=== PATIENT | female | born 1955 | race Caucasian/White ===

== ENCOUNTER 2022-09-01 11:22 | Inpatient (IN) ==
--- NOTE | 2022-08-12 08:46 | PAT Medication Instructions ---
Medication Instructions Date of Service August 12, 2022 Home Medications calcium carbonate 500 mg calcium (1,250 mg) chewable tablet (Calcium 500) 500 mg PO DAILY cyanocobalamin (vitamin B-12) 1,000 mcg/mL injection solution 1,000 mcg subcut MONTHLY folic acid 1 mg tablet 1 mg PO QAM lansoprazole 30 mg capsule,delayed release 30 mg PO BID lisinopril 10 mg tablet 10 mg PO QAM oxazepam 10 mg capsule 10 mg PO BID PRN paroxetine HCl 20 mg tablet 40 mg PO PM simvastatin 40 mg tablet 40 mg PO HS spironolactone 25 mg tablet 25 mg PO BID sulfasalazine 500 mg tablet 1,500 mg PO TID Continue as directed not day of surgery calcium carbonate 500 mg calcium (1,250 mg) chewable tablet (Calcium 500) 500 mg PO DAILY cyanocobalamin (vitamin B-12) 1,000 mcg/mL injection solution 1,000 mcg subcut MONTHLY DO NOT take the morning of surgery folic acid 1 mg tablet 1 mg PO QAM lisinopril 10 mg tablet 10 mg PO QAM spironolactone 25 mg tablet 25 mg PO BID sulfasalazine 500 mg tablet 1,500 mg PO TID Take morning of surgery With a small sip of water, OTHERWISE NOTHING TO EAT OR DRINK AFTER MIDNIGHT: lansoprazole 30 mg capsule,delayed release 30 mg PO BID oxazepam 10 mg capsule 10 mg PO BID PRN(if needed) Take evening before surgery lansoprazole 30 mg capsule,delayed release 30 mg PO BID oxazepam 10 mg capsule 10 mg PO BID PRN(if needed) paroxetine HCl 20 mg tablet 40 mg PO PM simvastatin 40 mg tablet 40 mg PO HS spironolactone 25 mg tablet 25 mg PO BID sulfasalazine 500 mg tablet 1,500 mg PO TID Other Notes If you have any questions please call us at [phone] or [phone] or [phone] or [phone]
--- NOTE | 2022-08-18 14:18 | Anesthesiology Consultation ---
Date of Service August 18, 2022 Assessment & Plan (1) Encounter for pre-operative examination: - mild end expiratory wheezes noted on exam: optimization form sent to PCP. Chart Review Chart Review: Pending: Refer to Additional Notes / Consult section and Patient seen in Pre Admission Testing Teaching & Discussion Pre-Anesthesia Teaching/Discussion Notes: Instructed NPO after midnight before surgery, except medications with 15 cc of water. Medication instructions provided according to the PAT guidelines. History Surgery Operation Date: 09/01/22 12:25 Proposed Procedures p L2-S1 Decompression and Fusion Spinal Cord Monitoring - Dima Rose DO Height/Weight Height: 5 ft 3 in Weight: 88.451 kg Allergies Allergy/AdvReac Type Severity Reaction Status Date / Time celecoxib [From Celebrex] Allergy Intermediate feet swell Verified 08/08/22 14:02 Medications Home Medications Medication Instructions Recorded Confirmed Last Taken calcium carbonate 500 mg calcium 500 mg PO DAILY 08/08/22 08/08/22 Unknown (1,250 mg) chewable tablet (Calcium 500) cyanocobalamin (vitamin B-12) 1,000 mcg subcut MONTHLY 08/08/22 08/08/22 Unknown 1,000 mcg/mL injection solution folic acid 1 mg tablet 1 mg PO QAM 08/08/22 08/08/22 Unknown lansoprazole 30 mg capsule,delayed 30 mg PO BID 08/08/22 08/08/22 Unknown release lisinopril 10 mg tablet 10 mg PO QAM 08/08/22 08/08/22 Unknown oxazepam 10 mg capsule 10 mg PO BID PRN Anxiety 08/08/22 08/08/22 Unknown paroxetine HCl 20 mg tablet 40 mg PO PM 08/08/22 08/08/22 Unknown simvastatin 40 mg tablet 40 mg PO HS 08/08/22 08/08/22 Unknown spironolactone 25 mg tablet 25 mg PO BID 08/08/22 08/08/22 Unknown sulfasalazine 500 mg tablet 1,500 mg PO TID 08/08/22 08/08/22 Unknown Additional Notes: Pt verbalized understanding and it was marked on provided medication instructions to not take calcium DOS. She denied questions or concerns. Past Medical History Medical History (Updated 08/18/22 @ 15:02 by Clarita Vasquez PA-C) Anxiety Chronic back pain Crohn's disease Diverticular disease GERD (gastroesophageal reflux disease) controlled, stable per pt Hiatal hernia slight History of anesthesia reaction "doesn't take much to put me out" denies being slow to wake or h/o re- intubation Hyperlipidemia Hypertension controlled, stable per pt Skin cancer left arm s/p excision Sleep apnea has not received new cpap due to recall Patient denies h/o stroke, seizures, heart attack, heart failure, DM, blood clots or blood transfusions. Exercise / Class Metabolic Activity II 4-5 Yardwork/Stairs/Walk up hill (denies CP or SOB with 1 FOS) Past Family History Family History Father No problems noted. Grandfather (Paternal) Colon cancer Past Surgical History Surgical History (Updated 08/18/22 @ 14:54 by Clarita Vasquez PA-C) History of bilateral tubal ligation History of cataract surgery bilat History of colonoscopy History of esophagogastroduodenoscopy (EGD) History of hysterectomy History of surgery on arm left from fall History of tonsillectomy History of tooth extraction Past Anesthesia History Other ("doesn't take much to put out" denies being slow to wake/re-intubation) History of PONV History of PONV and Hx of Motion Sickness Social History Smoking Status: Current every day smoker tobacco type: cigarettes Smoking cigarettes per day: 1/2 ppd-advised Do You Dip or Chew Tobacco: No Hx Alcohol Use: No Hx Substance Use: No substance use type: does not use Review of Systems Patient denies chest pain, shortness of breath, dyspnea on exertion, fever, chills, cough, wheezing, or palpitations. Physical Exam Vital Signs Vitals BP 116/76 P 80 TEMP 99 SP02 94% on RA RESP 17 Physical Full cervical extension range of motion without pain TMD 3.5 finger breadths Mallampati Score 3 Dentition: intact, several bridges two upper and one lower; denies chipped or loose teeth, caps/crowns Lungs: normal respiratory effort. Normal respiratory effort, good air movement. Mild end expiratory wheezes, no rales or rhonchi Cardiac: regular rate and rhythm, no murmurs noted Carotid arteries: negative bruit bilat Lab Results Anesthesia Preop Results Results Anesthesia Widget: WBC 8.51 K/ul (4.8-10.8) 08/18/22 Hgb 16.7 g/dl (12.0-16.0) H 08/18/22 Hct 48.4 % (34.1-44.9) H 08/18/22 Plt 210 K/uL (130-400) 08/18/22 PT 11.9 Seconds (9.0-12.0) 08/18/22 PTT 34.2 Seconds (21.0-31.0) H 08/18/22 INR 1.1 (0.9-1.1) 08/18/22 Urine Color Yellow 08/18/22 Urine Appearance Clear (Clear) 08/18/22 Urine pH 7.0 (4.5-7.5) 08/18/22 Urine Specific Gibbs 1.005 (1.000-1.030) 08/18/22 Urine Protein Negative (Negative) 08/18/22 Urine Glucose (UA) Negative (Negative) 08/18/22 Urine Ketones Negative (Negative) 08/18/22 Urine Blood Negative (Negative) 08/18/22 Urine Nitrite Negative (Negative) 08/18/22 Urine Bilirubin Negative (Negative) 08/18/22 Urine Urobilinogen Negative (Negative) 08/18/22 Urine Leukocyte Esterase Negative (Negative) 08/18/22 Blood Type A Positive 08/18/22 Antibody Screen NEGATIVE 08/18/22 Testing Laboratory Results 08/07/2022 SODIUM: 137 POTASSIUM: 4 CHLORIDE: 103 CO2: 28 BUN: 6 CREATININE: 0.7 GLUCOSE: 91 Electrocardiogram Date: 08/18/22 Sinus rhythm with 1st degree AV block, rate 81 bpm Chest X-Ray Date: 08/18/22 Small right midlung zone and left lung base linear densities likely representing subsegmental atelectasis or scarring. Otherwise, the lungs are clear. No evidence for pulmonary edema. The cardiac silhouette is top normal in size. No pleural effusions. No pneumothorax. Old, healed left-sided rib fractures are noted. IMPRESSION: No acute process. COVID-19 Risk Screen Screening Information COVID-19 Screen Date: 08/18/22 Exposure 21 Days Family/Household +COVID Last 21 Days: No Exposure 10 Days Any COVID Exposure Last 10 Days: No Symptoms Last 10 Days Experienced COVID Sx Last 10 Days: No + COVID 0-90 Days COVID + in Last 0-90 Days: No
[~2022-09-01 11:22] MED LIST: ACETAMINOPHEN 500 MG TAB PO SCH; GABAPENTIN 300 MG CAP PO SCH; LR 15ML/HR IV SCH; ceFAZolin 2000MG 2,000 MG/15 ML SYR IV SCH
[2022-09-01] MEDS ORDERED: fentaNYL citrate 100 MCG/2 ML VIAL ONE ×2 (11:29)
[2022-09-01] MEDS ORDERED: MIDAZOLAM HCL 1 MG/ML 2ML VIAL ONE (11:29)
[2022-09-01] MEDS ORDERED: PHENYLEPHRINE HCL 10 MG/ML VIAL ONE (11:37)
[2022-09-01] MEDS ORDERED: ePHEDrine sulfate 50 MG/ML AMP IV PRN (12:38)
[2022-09-01] MEDS ORDERED: fentaNYL citrate 100 MCG/2 ML VIAL IV PRN (12:38)
[2022-09-01] MEDS ORDERED: ATROPINE SULFATE 0.1 MG/ML 10ML SYR IV PRN (12:38)
[2022-09-01] MEDS ORDERED: ONDANSETRON INJ 2 MG/ML 2 ML VIAL IV PRN ×2 (12:38→19:18)
--- NOTE | 2022-09-01 12:47 | History & Physical Bridge Note ---
Date of Service September 01, 2022 History & Physical Bridge Note I have examined the patient, reviewed the History & Physical and in the interval since the performance of the History & Physical I have noted the following changes of clinical significance: no changes noted
--- NOTE | 2022-09-01 12:48 | History & Physical Report ---
Date of Service September 01, 2022 Assessment & Plan (1) Neurogenic claudication due to lumbar spinal stenosis: Plan: L2-S1 decompression and fusion History of Present Illness Chief Complaint: Back and bilateral leg pain Primary Care Provider: Rolando Poe This is a 67-year-old female who presents with persistent back and bilateral leg pain. After failing a course of nonoperative care patient patient is here for surgical invention. Allergies Allergy/AdvReac Type Severity Reaction Status Date / Time celecoxib [From Celebrex] Allergy Intermediate feet swell Verified 09/01/22 11:48 Home Medications Medication Instructions Recorded Confirmed Type calcium carbonate 500 mg calcium 500 mg PO DAILY 08/08/22 09/01/22 History (1,250 mg) chewable tablet (Calcium 500) cyanocobalamin (vitamin B-12) 1,000 mcg subcut MONTHLY 08/08/22 09/01/22 History 1,000 mcg/mL injection solution folic acid 1 mg tablet 1 mg PO QAM 08/08/22 09/01/22 History lansoprazole 30 mg capsule,delayed 30 mg PO BID 08/08/22 09/01/22 History release lisinopril 10 mg tablet 10 mg PO QAM 08/08/22 09/01/22 History oxazepam 10 mg capsule 10 mg PO BID PRN Anxiety 08/08/22 09/01/22 History paroxetine HCl 20 mg tablet 40 mg PO PM 08/08/22 09/01/22 History simvastatin 40 mg tablet 40 mg PO HS 08/08/22 09/01/22 History spironolactone 25 mg tablet 25 mg PO BID 08/08/22 09/01/22 History sulfasalazine 500 mg tablet 1,500 mg PO TID 08/08/22 09/01/22 History Past Med/Surg History Medical History (Updated 09/01/22 @ 12:48 by Dima Rose DO) Anxiety Chronic back pain Crohn's disease Diverticular disease GERD (gastroesophageal reflux disease) controlled, stable per pt Hiatal hernia slight History of anesthesia reaction "doesn't take much to put me out" denies being slow to wake or h/o re- intubation Hyperlipidemia Hypertension controlled, stable per pt Skin cancer left arm s/p excision Sleep apnea has not received new cpap due to recall Surgical History History of bilateral tubal ligation History of cataract surgery bilat History of colonoscopy History of esophagogastroduodenoscopy (EGD) History of hysterectomy History of surgery on arm left from fall History of tonsillectomy History of tooth extraction Family History Father No problems noted. Grandfather (Paternal) Colon cancer Social History Smoking Status: Current every day smoker Cigarettes Per Day: 1/2 ppd-advised; Second Hand Exposure: No; Do You Dip or Chew Tobacco: No; Tobacco Cessation Education Requested by Patient: No Hx Alcohol Use: No Hx Substance Use: No Preferred Language: Sami Communication Ability: Effective Access Director Required: No Beliefs That Will Affect Care: None Current Living Situation: Spouse Other Information That Helps Us Care for You: No Feels Safe at Home: Yes Safety Concerns: Feels Safe At This Time Assistive Devices: Glasses Physical Exam Physical Exam: Patient is alert and oriented Heart regular rhythm Lungs clear Results & Data Results & Data ([facility]) Vital Signs (Past 12 Hours) Vital Signs Temp Pulse Resp BP Pulse Ox O2 Del Method 09/01/22 11:52 36.8 C 75 18 143/94 H 97 Room Air
[2022-09-01] MEDS ORDERED: ceFAZolin 330 MG/ML 1 GM VIAL ONE (12:50)
[2022-09-01] MEDS ORDERED: BUPIVACAINE/EPINEPHRINE 0.25% 1:200,000 30 ML VIAL ONE (12:50)
[2022-09-01] MEDS ORDERED: HYDROmorphone INJ 2 MG/ML SYR/VIAL ONE (13:46)
[2022-09-01] MEDS ORDERED: DEXAMETHASONE SOD INJ 4 MG/ML VIAL ONE (13:48)
[2022-09-01] MEDS ORDERED: NEOSTIGMINE METHYLSULFATE 1 MG/ML 10ML VIAL ONE (13:48)
[2022-09-01] MEDS ORDERED: LARYING-O-JET KIT (LTA) ONE (13:48)
[2022-09-01] MEDS ORDERED: ROCURONIUM BROMIDE 10 MG/ML 5 ML VIAL IV ONE (13:48)
[2022-09-01] MEDS ORDERED: PROPOFOL IV EMULSION 10 MG/ML 20 ML VIAL IV ONE (13:48)
[2022-09-01] MEDS ORDERED: GLYCOPYRROLATE 0.2 MG/ML VIAL ONE (13:48)
[2022-09-01] MEDS ORDERED: ONDANSETRON INJ 2 MG/ML 2 ML VIAL ONE (13:48)
[2022-09-01] MEDS ORDERED: LIDOCAINE 2% MPF LOCAL 5 ML VIAL INFIL ONE (13:48)
[2022-09-01] MEDS ORDERED: ePHEDrine sulfate 50 MG/ML SYR ONE (13:48)
[2022-09-01] MEDS ORDERED: FLOSEAL HEMOSTATIC MATRIX 10ML TOP ONE (13:52)
--- NOTE | 2022-09-01 16:00 | Operative Report ---
Post Operative Report Pre & Post Diagnosis Operation Date: 09/01/22 12:25 Pre-Op Diagnosis: Lumbar spinal stenosis with radiculopathy Post-Op Diagnosis: Same I identified the patient and participated in the time-out.: Yes Procedure Operation Date: 09/01/22 12:25 Actual Procedures #1 revision decompression with bilateral medial facetectomies and foraminotomies L2-L3 L3-L4 L4-5. #2 posterior spinal fusion L2-L5 per #3 placement of posterior segmental instrumentation L2-L5. #4 interbody fusion L3-4 L4-L5. #5 placement of Spira 13 x 26 mm cage at L3-L4 and 14 x 26 mm cage at L4-5. #6 placement locally harvested morselized autograft in the posterior gutters. #7 placement of I factor interbody space and infuse collagen sponge bone mass graft in the posterior lateral gutters. Surgeon Dima Rose, DO Outplacement Consultant Tessy Torres Estimated Blood Loss 500 Findings See Below The patient is 5 foot 3 weighing over 89 kg with a BMI of 35. The patient body was did contribute to significant technical difficulty requiring her deepest retractors and longer instruments in order to perform her procedure. This at least 50% increased operative time. Specimens None Indications This is a 67-year-old female who presents above-mentioned diagnosis after failed course of nonoperative care is here for the above-mentioned procedure. Description of Procedure Patient was met with identified informed consent obtained. Patient was then taken to the operative suite underwent a patient placed in a prone position the Lovilia table top Trev frame. All bony prominences well-padded eyes inspected to ensure no external pressure placed upon the. This point the lumbar spine was prepped and draped in normal sterile fashion. Sharp dissection with the assistance of Bovie cautery was performed down to and exposing the remaining lamina transverse processes of L2-L3-L4 and L5 bilaterally. L5-S1 had marked bony overgrowth tremendous scarring marked difficulty identifying landmarks. Subsequently I focused on the severe areas of compression today. Into the l ength of the surgery chose to address the superior levels first. Subsequently revision decompression with bilateral medial facetectomies and foraminotomy was performed at L2-L3 L3-L4 L4-5. Pedicle screws were then placed at L2 L3-L4-L5 bilaterally with assistance of fluoroscopy in the process martín placed. By way of a transforaminal approach complete discectomy of L4-5 was performed on the left. The endplates curetted to subcortical bleeding bone and a 14 x 26 mm spiral cage with I factor tapped in position. I then proceeded to L3-L4 and again by way of a transfemoral approach and left complete discectomy performed endplates curetted to subcortical bleeding bone and a 13 x 26 mm spiral cage with I factor tapped in position. Rods were then locked in final position bilaterally. Transverse processes of L2-L3 L4-5 burred to subcortically bone. Infuse collagen sponge bone mass And locally harvested morselized autograft was placed in the posterior gutters. 15 round VANDA drain inserted. The incision was then closed with 1 Vicryl in the fascia 2-0 Vicryl subcutaneously and 4 Monocryl for final skin closure. Steri-Strip sterile dressings placed. Patient waken taken PACU stable condition. Please note spinal cord monitoring was utilized at the procedure no changes noted. Lastly Tessy Torres was present out the entire surgery and while the patient positioning complex portions of the surgery and final skin closure. I attest to the content of the Intraoperative Record and any orders documented therein. Any exceptions are noted below.
--- NOTE | 2022-09-01 16:10 | Fluoroscopy Report ---
INTRAOPERATIVE RADIOGRAPHS CLINICAL HISTORY: Lumbar spinal fusion. Fluoroscopy time: 54 seconds. FINDINGS: 2 spot fluoroscopic views of the lumbar spine are presented. There has been discectomy at L 4-L5 and L5-S1 with laminectomy and posterior fusion at L2-L5. Interpedicular screws are present at a ll levels. The orthopedic hardware appears intact. IMPRESSION: Intraoperative images from lumbar spinal fusion surgery as above. Electronically signed by: Tarun Wilder M.D. 09/01/2022 4:09 PM
[2022-09-01] MEDS ORDERED: ALBUT/IPRATROP 3MG/0.5MG NEB 3 ML VIAL ONE (16:38)
[2022-09-01] MEDS ORDERED: ALBUT/IPRATROP 3MG/0.5MG NEB 3 ML VIAL NEB STA (16:39)
--- NOTE | 2022-09-01 17:47 | Anesthesiology Progress Note ---
Date of Service September 01, 2022 Anesthesia Post Procedure Vital Signs Vital Signs: Temp Pulse Pulse Resp BP BP Pulse Ox 09/01/22 17:35 36.8 C 107 H 18 127/70 93 09/01/22 17:25 101 H 14 118/101 H 90 09/01/22 17:15 98 H 14 108/87 92 09/01/22 17:05 97 H 12 132/85 92 09/01/22 16:55 97 H 15 143/87 H 90 09/01/22 16:47 95 H 11 L 153/91 H 97 09/01/22 16:40 99 H 13 153/113 H 92 09/01/22 16:19 36.5 C 77 14 159/91 H 95 09/01/22 11:52 36.8 C 75 18 143/94 H 97 O2 Del Method O2 Flow Rate 09/01/22 17:35 Nasal Cannula 4 09/01/22 17:25 Nasal Cannula 4 09/01/22 17:15 Oxymask 5 09/01/22 17:05 Oxymask 5 09/01/22 16:55 Nebulizer 10 09/01/22 16:47 Nebulizer 10 09/01/22 16:40 Oxymask 10 09/01/22 16:19 Oxymask 10 09/01/22 11:52 Room Air Pain Intensity Back: Pain Intensity: 3 Transfer of Care Handoff Completed per policy Notes Mental Status: alert / awake / arousable Patient Amnestic to Procedure: Yes Nausea / Vomiting: adequately controlled Pain: adequately controlled Airway Patency, RR, SpO2: stable & adequate BP & HR: stable & adequate Hydration State: stable & adequate Anesthetic Complications: no major complications apparent Notes: patient to floor with nasal cannula and pulse ox monitor. respiratory status is acceptable and improving as would be expected for a patient with preexisting pulmonary disease and a several hour spine surgery. she did receive 1 duoneb treatment in pacu. possibly a bit wet but steadily improving. elected not to treat with diuretics to avoid intravascular dehydration.
[2022-09-01] MEDS ORDERED: METOCLOPRAMIDE HCL INJ 5 MG/ML 2 ML VIAL IV PRN (19:18)
[2022-09-01] MEDS ORDERED: ACETAMINOPHEN 1,000 MG/100 ML VIAL IV PRN (19:18)
[2022-09-01] MEDS ORDERED: hydrOXYzine HCl 25 MG TAB PO PRN (19:18)
[2022-09-01] MEDS ORDERED: LORazepam 0.5 MG TAB PO PRN (19:18)
[2022-09-01] MEDS ORDERED: bisacodyL 10 MG SUPP PR PRN (19:18)
[2022-09-01] MEDS ORDERED: traMADol HCL 50 MG TABLET PO PRN (19:18)
[2022-09-01] MEDS ORDERED: NALOXONE HCL 0.4 MG/1 ML VIAL/CARP IV PRN (19:18)
[2022-09-01] MEDS ORDERED: MAGNESIUM HYDROXIDE SUSP 30 ML UDC PO PRN (19:18)
[2022-09-01] MEDS ORDERED: diphenhydrAMINE Capsule 25 MG CAP PO PRN (19:18)
[2022-09-01] MEDS ORDERED: ALUMINUM/MAGNESIUM SUSP 30 ML UDC PO PRN (19:18)
[2022-09-01] MEDS ORDERED: ONDANSETRON 4 MG OD TAB PO PRN (19:18)
[2022-09-01] MEDS ORDERED: ACETAMINOPHEN 500 MG TAB PO PRN (19:18)
[2022-09-01] MEDS ORDERED: HYDROmorphone INJ 0.5 MG/0.5 ML SYR IV PRN (19:18)
[2022-09-01] MEDS ORDERED: PROMETHAZINE HCL 12.5 MG in SODIUM CHLORIDE 0.9% 50 ML IV PRN (19:18)
[2022-09-01] MEDS: LACTATED RINGER'S 1,000 ML IV SCH (19:18)
[2022-09-01] MEDS ORDERED: HYDROmorphone INJ 1 MG/ML SYRINGE IV PRN (19:18)
[2022-09-01] MEDS ORDERED: FAMOTIDINE 20 MG TAB PO PRN (19:18)
[2022-09-01] MEDS ORDERED: LORazepam 0.5 MG in SYRINGE 0 ML IV PRN (19:18)
[2022-09-01] MEDS ORDERED: SOD PHOSPHATE/SOD BIPHOSPHATE ENEMA 132 ML BTL PR PRN (19:18)
[2022-09-01] MEDS: DOCUSATE SODIUM/SENNA 50/8.6MG TAB PO SCH (21:23)
[2022-09-01] MEDS: LANSOPRAZOLE 15 MG SOLTAB PO SCH (21:24)
[2022-09-01] MEDS: PARoxetine HCL 20 MG TAB PO SCH (21:24)
[2022-09-01] MEDS: SPIRONOLACTONE 25 MG TAB PO SCH (21:25)
[2022-09-01] MEDS: SIMVASTATIN 40 MG TAB PO SCH (21:25)
[2022-09-01] MEDS: sulfaSALAzine 500 MG TABLET PO SCH (21:26)
[2022-09-01] MEDS: ceFAZolin 2000MG 2,000 MG/15 ML SYR IV SCH (21:26)
[2022-09-02] MEDS: LACTATED RINGER'S 1,000 ML IV SCH (03:09)
--- NOTE | 2022-09-02 04:14 | Consultation Report ---
DATE OF CONSULTATION: 09/02/2022. CHIEF COMPLAINT: Status post back surgery. HISTORY OF PRESENT ILLNESS: This is a 67-year-old female with past medical history significant for hypertension, hyperlipidemia, tobacco use, Crohn's disease, history of obstructive sleep apnea, status post back surgery, tolerated the procedure okay. Pain is under control. Currently sleeping, easily arousable. Denies any chest pain. No shortness of breath, no nausea. Has some mild headache. No blurred visions, no runny nose. Throat is dry. No cough, no abdominal pain. ALLERGIES: CELEBREX. PAST MEDICAL HISTORY: As mentioned above. PAST SURGICAL HISTORY: Tonsillectomy, adenoidectomy, total abdominal hysterectomy with bilateral salpingo-oophorectomy, colonoscopy, EGDs, tubal ligation, closed reduction of left humeral fracture. SOCIAL HISTORY: Smokes half pack a day as per records. Alcohol, rarely. No drug use. FAMILY HISTORY: Paternal grandfather had colon cancer. MEDICATIONS: The patient is on calcium carbonate 500 mg p.o. daily, vitamin B12 1000 mcg subcutaneous monthly, folic acid 1 mg p.o. daily, lansoprazole 30 mg p.o. b.i.d., lisinopril 10 mg p.o. a.m., oxazepam 10 mg p.o. b.i.d. p.r.n., paroxetine 40 mg p.o. p.m., simvastatin 40 mg p.o. at bedtime, spironolactone 25 mg p.o. b.i.d., sulfasalazine 1500 mg p.o. t.i.d. REVIEW OF SYSTEMS: As per HPI. Rest of the review of systems is negative. PHYSICAL EXAMINATION: GENERAL: The patient is obese, not in acute distress. VITAL SIGNS: Temperature 36.7, pulse 99, respiratory rate 20, blood pressure 95/55, oxygen 92% on 4 liters. HEENT: Atraumatic. Extraocular muscles intact. NECK: No neck masses seen. CARDIOVASCULAR: S1 and S2 heard. Regular rate and rhythm. No murmur, no gallop. RESPIRATORY SYSTEM: Normal AP diameter. No accessory muscle use. No wheezing, no crackles. ABDOMEN: Soft, bowel sounds present, nontender, no distention. CENTRAL NERVOUS SYSTEM: Alert and oriented. No facial droop. Speech is clear. Obeys simple commands. Moves extremities. EXTREMITIES: No edema, no erythema seen. MUSCULOSKELETAL: Not able to check the back because the patient does not want to move at this time. LABORATORY DATA: SARS-CoV-2 rapid test negative. ASSESSMENT AND PLAN: This is a 67-year-old female status post back surgery. 1. Status post back surgery: Management as per orthopedics. 2. History of obstructive sleep apnea: The patient says she is not using CPAP machine for a few months now since the machine was recalled, but she is okay to use the hospital CPAP machine. 3. History of hypertension: Continue lisinopril. 4. Gastroesophageal reflux disease: Continue omeprazole. 5. Hyperlipidemia: Continue statin. 6. Crohn's: Continue sulfasalazine. 7. Deep venous thrombosis prophylaxis and disposition as per orthopedics. Job ID: [id number] [id number]
[2022-09-02] MEDS: POLYETHYLENE (MIRALAX) 17 GM PACK PO SCH ×3 (05:37→18:18)
[2022-09-02] MEDS: ceFAZolin 2000MG 2,000 MG/15 ML SYR IV SCH (05:37)
[2022-09-02] MEDS: LANSOPRAZOLE 15 MG SOLTAB PO SCH ×2 (08:22→20:18)
[2022-09-02] MEDS: lisinopril 10 MG TAB PO SCH (08:23)
[2022-09-02] MEDS: CALCIUM CARBONATE 1250MG TAB PO SCH (08:23)
[2022-09-02] MEDS: FOLIC ACID 1 MG TAB PO SCH (08:23)
[2022-09-02] MEDS: dexAMETHasone 6 MG in SYRINGE 0 ML IV SCH (08:23)
[2022-09-02] MEDS: sulfaSALAzine 500 MG TABLET PO SCH ×3 (08:23→20:17)
[2022-09-02] MEDS: SPIRONOLACTONE 25 MG TAB PO SCH ×2 (08:23→20:17)
[2022-09-02 08:28] LABS: Basophils # (auto) 0.03 K/uL (0-0.2); Basophils % (auto) 0.2 %; Hematocrit (blood only) 40.6 % (34.1-44.9); Hemoglobin 13.9 g/dl (12.0-16.0); Immature Granulocytes % (auto) 0.6 %; Lymphocytes # (auto) 3.01 K/uL (1.2-3.4); Lymphocytes % (auto) 19.2 %; Mean Corpuscular Hemoglobin 31.9 pg (25.0-34.0); Mean Corpuscular Hgb Conc 34.2 g/dL (32.0-36.0); Mean Corpuscular Volume 93.1 fL (80.0-100.0); Mean Platelet Volume 10.4 fL (9.4-12.3); Monocytes # (auto) 1.27 K/uL (0.24-0.82); Monocytes % (auto) 8.1 %; Neutrophils # (auto) 11.29 K/uL (1.4-6.5); Neutrophils % (auto) 71.9 %; Platelet Count 177 K/uL (130-400); RDW Coefficient of Variation 13.4 % (11.5-14.5); RDW Standard Deviation 45.9 fL (36.4-46.3); Red Blood Count 4.36 M/uL (3.93-5.22)
[2022-09-02 08:55] LABS: BUN Creatinine Ratio 13.2 (10-20); Calcium 8.9 mg/dl (8.5-10.1); Creatinine Clr Calc Pharmacy 87.6 ml/min; Est GFR (African American) 106.4 ml/min; Est GFR (Non-African American) 91.8 ml/min
--- NOTE | 2022-09-02 11:40 | Orthopedic Progress Note ---
Date of Service September 02, 2022 Assessment & Plan (1) Neurogenic claudication due to lumbar spinal stenosis: Plan: Stable continue physical therapy monitor VANDA operatively discharge home in the next few days. Admission and Anticipated Discharge Date Admission Date: September 01, 2022 Subjective Back pain controlled leg pain improved Physical Exam Physical Exam: Patient is in the chair at the bedside is constricted testing. Results & Data ([facility]) Vital Signs (Past 12 Hours) Vital Signs Temp Pulse Resp BP Pulse Ox O2 Del Method O2 Flow Rate 09/02/22 10:59 36.6 C 85 16 109/65 92 Nasal Cannula 3 09/02/22 07:16 36.6 C 86 16 127/80 95 Nasal Cannula 4 09/02/22 03:08 36.5 C 92 H 20 124/80 91 Room Air
[2022-09-02] MEDS: oxyCODONE HCL IR 5 MG TAB (IMMEDIATE RELEASE) PO PRN (11:54)
--- NOTE | 2022-09-02 13:46 | Hospitalist Progress Note ---
Date of Service September 02, 2022 Assessment & Plan (1) Neurogenic claudication due to lumbar spinal stenosis: (2) Post-operative state: Plan: Status post back surgery by Dr. Rose on 09/01. Continue to monitor postop CBC, pain control per Ortho. We did add baclofen for muscle spasms which improved her pain. Activity restrictions per Ortho. (3) Postoperative fever: Plan: Temp is around 38.2 centigrade. Considerations include continued inflammation postsurgery, urinary tract infection, pneumonia with ongoing hypoxia and rough cough, early surgical site infection or myocardial infarction considered less likely. Venous thromboembolism also a consideration but is less likely. Will obtain chest x-ray, UA and EKG at this time. Tylenol was given an hour ago. Will repeat in another 3 hours if still febrile. (4) Tobacco use: Plan: Smoking cessation advised. (5) Crohn's disease: Plan: Smoking cessation advised. Patient with chronic stable Crohn's. Continue sulfasalazine. (6) Sleep apnea: Plan: Noncompliant with CPAP secondary to machine being recalled. She is okay to use the hospital CPAP machine. (7) DVT prophylaxis: Plan: SCDs/ambulation in postoperative state Full code Disposition-pending recovery from surgery. Melany Cody DO [facility] Hospitalist Admission and Anticipated Discharge Date Admission Date: September 01, 2022 Subjective 67-year-old female status post lumbar surgery, postop day 1 Patient is persistently hypoxic requiring 2 to 4 L/min of oxygen. She has been consistently taking pain medicine including oxycodone and then later took baclofen for severe muscle spasms in her back. She is now more comfortable from a pain standpoint but still requiring the oxygen. She has pain when she mobilizes in bed at all and is comfortable laying supine. She is a smoker with a hoarse cough. She reports some phlegm in the back of her throat. She has no issues with speech. The focus of this interview is on her muscle spasms in her back. Later she developed postoperative fever not improved much with Tylenol. Temp is around 38.2 centigrade. Considerations include continued inflammation postsurgery, urinary tract infection, pneumonia with ongoing hypoxia and rough cough, early surgical site infection or myocardial infarction considered less likely. Venous thromboembolism also a consideration but is less likely. Review of Systems Review of Systems: All systems reviewed negative except as indicated above. Physical Exam Physical Exam: CONSTITUTIONAL: obese, vitals as above, generally appears comfortable but can't move much without severe pain. EYES: normal conjunctivae, no scleral icterus ENT: external ear and nose normal, MMM, hoarse voice with what sounds like a smokers cough NECK: trachea midline, RESPIRATORY: clear to auscultation bilaterally, no crackles, rales or wheezes, normal respiratory effort CARDIOVASCULAR: regular rate and rhythm, S1 and 2 heard without murmurs, gallops or rubs, no JVD, no peripheral edema CHEST: inspection of chest was normal GASTROINTESTINAL: soft, nontender, ND, no guarding MUSCULOSKELETAL: lying supine, moves extremities equally, minimal movement 2/2 pain, head is normocephalic and atraumatic SKIN: warm and dry NEUROLOGIC: CN 2-12 grossly intact, no sensory deficit, normal cognition, normal speech, no tremor PSYCHIATRIC: alert cooperative and oriented to person, place and time. Results & Data Results & Data ([facility]) Vital Signs (Past 12 Hours) Vital Signs Temp Pulse Resp BP Pulse Ox Pulse Ox O2 Del Method 09/02/22 11:56 93 09/02/22 10:59 36.6 C 85 16 109/65 92 Nasal Cannula 09/02/22 07:16 36.6 C 86 16 127/80 95 Nasal Cannula 09/02/22 03:08 36.5 C 92 H 20 124/80 91 Room Air O2 Flow Rate O2 Flow Rate 09/02/22 11:56 3 09/02/22 10:59 3 09/02/22 07:16 4 09/02/22 03:08 Laboratory Results Short CBC 09/02/22 Range/Units 08:02 WBC 15.70 H (4.8-10.8) K/ul Hgb 13.9 (12.0-16.0) g/dl Hct 40.6 (34.1-44.9) % Plt Count 177 (130-400) K/uL BMP 09/02/22 08:02 Sodium 133 L Potassium 4.0 Chloride 99 Carbon Dioxide 30 BUN 9 Creatinine 0.68 Glucose 102 H Calcium 8.9 Medications Administered Current Inpatient Medications Acetaminophen (Acetaminophen 500 Mg Tab) 1,000 mg PO Q8H PRN PRN Reason: MILD Pain Scale 1,2,3 & Pre PT Stop: 10/01/22 19:17 Al Hydrox/Mg Hydrox/Simethicone (Aluminum/Magnesium Susp 30 Ml Udc) 30 ml PO Q6H PRN PRN Reason: Dyspepsia Stop: 10/01/22 19:17 Baclofen (Baclofen 10 Mg Tab) 10 mg PO Q12H PRN PRN Reason: muscle spasms Stop: 10/02/22 13:44 Bisacodyl (Bisacodyl 10 Mg Supp) 10 mg [place] DAILY PRN PRN Reason: Constipation Stop: 10/01/22 19:17 Calcium Carbonate (Calcium Carbonate 1250mg Tab) 1,250 mg PO DAILY [facility] Stop: 10/02/22 08:59 Last Admin: 09/02/22 08:23 Dose: 1,250 mg Diphenhydramine HCl (Diphenhydramine Capsule 25 Mg Cap) 25 mg PO Q6H PRN PRN Reason: Allergic Rhinitis/Insomnia Stop: 10/01/22 19:17 Famotidine (Famotidine 20 Mg Tab) 20 mg PO Q12H PRN PRN Reason: Dyspepsia Stop: 10/01/22 19:17 Folic Acid (Folic Acid 1 Mg Tab) 1 mg PO QAM [facility] Stop: 10/02/22 08:59 Last Admin: 09/02/22 08:23 Dose: 1 mg Hydromorphone HCl (Hydromorphone Inj 0.5 Mg/0.5 Ml Syr) 0.5 mg IV Q3H PRN PRN Reason: MODERATE Pain (Scale 4,5,6) & Pre PT Stop: 09/15/22 19:17 Hydromorphone HCl (Hydromorphone Inj 1 Mg/Ml Syringe) 1 mg IV Q3H PRN PRN Reason: SEVERE Pain (Scale 7,8,9,10) Stop: 09/15/22 19:17 Hydroxyzine HCl (Hydroxyzine Hcl 25 Mg Tab) 25 mg PO Q8H PRN PRN Reason: Anxiety Stop: 10/01/22 19:17 Promethazine HCl 12.5 mg/ (Sodium Chloride) 50.5 mls @ 202 mls/hr IV Q6H PRN PRN Reason: Nausea &/or Vomiting Stop: 10/01/22 19:17 Acetaminophen (Ofirmev) 1,000 mg in 100 mls @ 400 mls/hr IV Q8H PRN PRN Reason: Pain Rating 1-3 & Pre PT Stop: 09/02/22 19:19 Last Infusion: 09/02/22 05:58 Dose: Infused Lorazepam 0.5 mg/ Syringe 0.5 mls @ 2 mls/min IV Q8H PRN PRN Reason: Sedation/Anxiety Stop: 10/01/22 19:17 Dexamethasone 6 mg/ Syringe 1.5 mls @ 1 mls/min IV DAILY [facility] Stop: 09/04/22 09:02 Last Admin: 09/02/22 08:23 Dose: 1 mls/min Lansoprazole (Lansoprazole 15 Mg Soltab) 30 mg PO BID [facility] Stop: 10/01/22 20:59 Last Admin: 09/02/22 08:22 Dose: 30 mg Lisinopril (Lisinopril 10 Mg Tab) 10 mg PO QAM [facility] Stop: 10/02/22 08:59 Last Admin: 09/02/22 08:23 Dose: 10 mg Lorazepam (Lorazepam 0.5 Mg Tab) 0.5 mg PO Q8H PRN PRN Reason: Sedation/Anxiety Stop: 10/01/22 19:17 Magnesium Hydroxide (Magnesium Hydroxide Susp 30 Ml Udc) 30 ml PO Q24H PRN PRN Reason: Constipation Stop: 10/01/22 19:17 Metoclopramide HCl (Metoclopramide Hcl Inj 5 Mg/Ml 2 Ml Vial) 10 mg IV Q6H PRN PRN Reason: Nausea &/or Vomiting Stop: 10/01/22 19:17 Miscellaneous (Oxazepam 10 Mg Capsule: Order Awaiting Action) 1 each N/A QS [facility] Stop: 10/02/22 00:00 Last Admin: 09/02/22 07:04 Dose: Not Given Naloxone HCl (Naloxone Hcl 0.4 Mg/1 Ml Vial/Carp) 0.1 mg IV Q5M PRN PRN Reason: Oversedation/Resp depression Stop: 10/01/22 19:17 Ondansetron HCl (Ondansetron Inj 2 Mg/Ml 2 Ml Vial) 4 mg IV Q6H PRN PRN Reason: Nausea &/or Vomiting Stop: 10/01/22 19:17 Ondansetron HCl (Ondansetron 4 Mg Od Tab) 4 mg PO Q6H PRN PRN Reason: Nausea Stop: 10/01/22 19:17 Oxycodone HCl (Oxycodone Hcl Ir 5 Mg Tab (Immediate Release)) 5 - 10 mg PO Q4H PRN PRN Reason: Pain & Pre PT Stop: 09/15/22 19:17 Last Admin: 09/02/22 11:54 Dose: 5 mg Paroxetine HCl (Paroxetine Hcl 20 Mg Tab) 40 mg PO PM [facility] Stop: 10/01/22 20:59 Last Admin: 09/01/22 21:24 Dose: 40 mg Polyethylene Glycol (Polyethylene (Miralax) 17 Gm Pack) 17 gm PO Q6 [facility] Stop: 10/02/22 05:59 Last Admin: 09/02/22 11:47 Dose: Not Given Senna/Docusate Sodium (Docusate Sodium/Senna 50/8.6mg Tab) 2 tab PO HS [facility] Stop: 10/01/22 20:59 Last Admin: 09/01/22 21:23 Dose: 2 tab Simvastatin (Simvastatin 40 Mg Tab) 40 mg PO HS [facility] Stop: 10/01/22 20:59 Last Admin: 09/01/22 21:25 Dose: 40 mg Sodium Biphosphate/Sodium Phosphate (Sod Phosphate/Sod Biphosphate Enema 132 Ml Btl) 132 ml [place] ONE PRN PRN Reason: Constipation Stop: 10/01/22 19:17 Spironolactone (Spironolactone 25 Mg Tab) 25 mg PO BID [facility] Stop: 10/01/22 20:59 Last Admin: 09/02/22 08:23 Dose: 25 mg Sulfasalazine (Sulfasalazine 500 Mg Tablet) 1,500 mg PO TID [facility] Stop: 10/01/22 20:59 Last Admin: 09/02/22 08:23 Dose: 1,500 mg Tramadol HCl (Tramadol Hcl 50 Mg Tablet) 50 - 100 mg PO Q4H PRN PRN Reason: Moderate-Severe pain & Pre PT Stop: 10/01/22 19:17
[2022-09-02] MEDS: BACLOFEN 10 MG TAB PO PRN (13:47)
--- NOTE | 2022-09-02 18:45 | XRay Report ---
XR chest 1V portable HISTORY: post op fever COMPARISON: Chest 08/18/2022. FINDINGS: Low lung volumes. No pneumothorax. No pleural effusions. The heart remains mildly enlarged. No evidence for pulmonary edema. There are patchy bibasilar densities, left greater than right. IMPRESSION: Patchy bibasilar densities most pronounced on the left. This may represent atelectasis or pneumonia. ACT 112: Negative or not required by law. Electronically signed by: Roc Harris M.D. 09/02/2022 6:44 PM
[2022-09-02 19:04] LABS: Appearance Urine Clear (Clear); Bilirubin Urine Negative (Negative); Blood Urine Negative (Negative); Color Urine Yellow; Glucose Urine UA Negative (Negative); Ketones Urine Negative (Negative); Leukocyte Esterase Urine Negative (Negative); Nitrite Urine Negative (Negative); Protein Urine Negative (Negative); Specific Gravity Urine 1.008 (1.000-1.030); Urobilinogen Urine Negative (Negative)
[2022-09-02] MEDS: DOCUSATE SODIUM/SENNA 50/8.6MG TAB PO SCH (20:13)
[2022-09-02] MEDS: PARoxetine HCL 20 MG TAB PO SCH (20:17)
[2022-09-02] MEDS: SIMVASTATIN 40 MG TAB PO SCH (20:17)
[2022-09-03] MEDS: POLYETHYLENE (MIRALAX) 17 GM PACK PO SCH ×5 (01:03→22:56)
[2022-09-03] MEDS: dexAMETHasone 6 MG in SYRINGE 0 ML IV SCH (07:42)
--- NOTE | 2022-09-03 08:17 | Electrocardiogram Report ---
Test Reason : Blood Pressure : / mmHG Vent. Rate : 105 BPM Atrial Rate : 105 BPM P-R Int : 182 ms QRS Dur : 054 ms QT Int : 308 ms P-R-T Axes : 043 028 030 degrees QTc Int : 407 ms Sinus tachycardia Nonspecific T wave abnormality Inferior leads Nonspecific T wave abnormality Anterior leads Otherwise normal ECG When compared with ECG of 18-AUG-2022 14:46, UT interval has decreased T wave inversion now evident in Inferior leads Nonspecific T wave abnormality now evident in Anterior leads Confirmed by Adam Doan ([id number] on 09/03/2022 8:17:28 AM Referred By: Dima Rose Confirmed By:Adam Doan
--- NOTE | 2022-09-03 08:31 | Orthopedic Progress Note ---
Date of Service September 03, 2022 Assessment & Plan (1) Neurogenic claudication due to lumbar spinal stenosis: Plan: Mrs. Lopez is postop day 2 status post L2-S1 decompression instrumented fusion. We will work on pain control today. Continue with DVT prophylaxis in the form teds and SCDs. Continue with aggressive bowel regimen. Continue ambulation/physical therapy. Anticipate discharge home within the next 24 to 48 hours. Admission and Anticipated Discharge Date Admission Date: September 01, 2022 Subjective Mrs. Lopez is postoperative day 2 status post L2-S1 decompression and instrumented fusion. She is complaining of some bilateral buttock spasms today. She is back in flatus but no bowel movement. VANDA drain output last shift was 50 cc. Yesterday in physical therapy ambling roughly 250 feet. Review of Systems Review of Systems: All systems reviewed & are unremarkable except as noted in HPI & below Physical Exam Physical Exam: She sitting in a chair no acute distress Alert and oriented x3 Lumbar dressing is clean dry intact with functioning VANDA drain Calf soft nontender bilaterally FIDEL hose intact bilaterally Strength intact bilateral lower extremities Results & Data ([facility]) Vital Signs (Past 12 Hours) Vital Signs Temp Pulse Resp BP Pulse Ox O2 Del Method O2 Flow Rate 09/03/22 07:35 37.5 C 85 18 113/75 91 Nasal Cannula 4
[2022-09-03] MEDS: lisinopril 10 MG TAB PO SCH (08:33)
[2022-09-03] MEDS: CALCIUM CARBONATE 1250MG TAB PO SCH (08:33)
[2022-09-03 08:34] LABS: Hematocrit (blood only) 36.7 % (34.1-44.9); Hemoglobin 12.9 g/dl (12.0-16.0); Mean Corpuscular Hemoglobin 31.9 pg (25.0-34.0); Mean Corpuscular Hgb Conc 35.1 g/dL (32.0-36.0); Mean Corpuscular Volume 90.8 fL (80.0-100.0); Mean Platelet Volume 10.5 fL (9.4-12.3); Platelet Count 154 K/uL (130-400); RDW Coefficient of Variation 13.2 % (11.5-14.5); RDW Standard Deviation 44.5 fL (36.4-46.3); Red Blood Count 4.04 M/uL (3.93-5.22); White Blood Count 14.33 K/ul (4.8-10.8)
[2022-09-03] MEDS: LANSOPRAZOLE 15 MG SOLTAB PO SCH ×2 (08:34→20:23)
[2022-09-03] MEDS: FOLIC ACID 1 MG TAB PO SCH (08:34)
[2022-09-03] MEDS: SPIRONOLACTONE 25 MG TAB PO SCH ×2 (08:34→20:24)
[2022-09-03] MEDS: sulfaSALAzine 500 MG TABLET PO SCH ×3 (08:34→20:24)
[2022-09-03] MEDS: cefTRIAXone SODIUM 2,000 MG in DEXTROSE 5% 50 ML IV SCH (08:36)
[2022-09-03] MEDS: oxyCODONE HCL IR 5 MG TAB (IMMEDIATE RELEASE) PO PRN ×2 (08:41→19:41)
[2022-09-03 08:56] LABS: BUN Creatinine Ratio 16.7 (10-20); Calcium 8.6 mg/dl (8.5-10.1); Creatinine Clr Calc Pharmacy 110.3 ml/min; Est GFR (African American) 114.8 ml/min; Potassium 3.9 mmol/L (3.5-5.1)
[2022-09-03] MEDS: AZITHROMYCIN 500 MG in DEXTROSE 5% 250 ML IV SCH (09:43)
[2022-09-03] MEDS: BACLOFEN 10 MG TAB PO PRN (15:18)
--- NOTE | 2022-09-03 18:54 | Hospitalist Progress Note ---
Date of Service September 03, 2022 Assessment & Plan (1) Neurogenic claudication due to lumbar spinal stenosis: (2) Post-operative state: Plan: S/P back surgery by Dr. Rose on 09/01 Pain control, DVT prophylaxis, wound care as per primary team Continue incentive spirometer PT/OT (3) Postoperative fever: Plan: Suspected pneumonia Atelectasis Blood cultures pending Urine analysis not suggestive of UTI Continue empiric antibiotics Repeat chest x-ray tomorrow Continue incentive spirometer (4) Tobacco use: Plan: Smoking cessation advised. (5) Crohn's disease: Plan: Smoking cessation advised. chronic stable Crohn's disease Continue sulfasalazine. (6) Sleep apnea: Plan: Noncompliant with CPAP secondary to machine being recalled. Continue CPAP while hospitalized (7) DVT prophylaxis: Plan: SCDs/ambulation in postoperative state Code Status Full code Admission and Anticipated Discharge Date Admission Date: September 01, 2022 Subjective Patient is seen and examined at bedside Back pain at surgical site is controlled Reports cough with minimal expectoration Offers no other complaints Afebrile today Review of Systems Review of Systems: All systems reviewed & are unremarkable except as noted in Subjective Physical Exam Physical Exam: Physical Exam: Vitals signs as noted above General Appearance:Moderately built and nourished, no apparent distress Head: normocephalic, Atraumatic Eyes: normal inspection, EOMI Neck: supple, Trachea midline Respiratory/Chest: Normal breath sounds, CTA, No accessory muscle use Cardiovascular: S1, S2, No murmur Abdomen/GI:Soft, Non tender, Bowel sounds present Back:Surgical site in dressing Extremities/Musculoskeletal:normal inspection, Trace edema Neurologic/Psych:AAOX3, grossly no focal neurological deficits Skin: normal color, warm Results & Data Results & Data ([facility]) Vital Signs (Past 12 Hours) Vital Signs Temp Pulse Resp BP Pulse Ox O2 Del Method O2 Flow Rate 09/03/22 14:27 37 C 68 18 102/68 90 Nasal Cannula 4 09/03/22 07:45 Nasal Cannula 4 09/03/22 07:35 37.5 C 85 18 113/75 91 Nasal Cannula 4 Laboratory Results Short CBC 09/03/22 Range/Units 08:14 WBC 14.33 H (4.8-10.8) K/ul Hgb 12.9 (12.0-16.0) g/dl Hct 36.7 (34.1-44.9) % Plt Count 154 (130-400) K/uL BMP 09/03/22 08:07 Sodium 131 L Potassium 3.9 Chloride 97 L Carbon Dioxide 29 BUN 9 Creatinine 0.54 L Glucose 109 H Calcium 8.6 Urine 09/02/22 Range/Units 18:49 Urine Color Yellow Urine Appearance Clear (Clear) Urine pH 7.0 (4.5-7.5) Ur Specific [place] 1.008 (1.000-1.030) Urine Protein Negative (Negative) Urine Glucose (UA) Negative (Negative)
[2022-09-03] MEDS: SIMVASTATIN 40 MG TAB PO SCH (20:23)
[2022-09-03] MEDS: PARoxetine HCL 20 MG TAB PO SCH (20:25)
[2022-09-03] MEDS: DOCUSATE SODIUM/SENNA 50/8.6MG TAB PO SCH (20:25)
[2022-09-04] MEDS: oxyCODONE HCL IR 5 MG TAB (IMMEDIATE RELEASE) PO PRN ×2 (04:09→10:40)
[2022-09-04] MEDS: POLYETHYLENE (MIRALAX) 17 GM PACK PO SCH ×2 (05:05→12:27)
[2022-09-04] MEDS: dexAMETHasone 6 MG in SYRINGE 0 ML IV SCH (07:27)
[2022-09-04 08:15] LABS: Hematocrit (blood only) 35.1 % (34.1-44.9); Hemoglobin 13.2 g/dl (12.0-16.0); Mean Corpuscular Hemoglobin 33.9 pg (25.0-34.0); Mean Corpuscular Hgb Conc 37.6 g/dL (32.0-36.0); Mean Corpuscular Volume 90.2 fL (80.0-100.0); Mean Platelet Volume 10.3 fL (9.4-12.3); Platelet Count 176 K/uL (130-400); RDW Coefficient of Variation 13.2 % (11.5-14.5); RDW Standard Deviation 43.6 fL (36.4-46.3); Red Blood Count 3.89 M/uL (3.93-5.22); White Blood Count 12.69 K/ul (4.8-10.8)
[2022-09-04] MEDS: cefTRIAXone SODIUM 2,000 MG in DEXTROSE 5% 50 ML IV SCH (08:20)
--- NOTE | 2022-09-04 08:26 | Orthopedic Progress Note ---
Date of Service September 04, 2022 Assessment & Plan (1) Neurogenic claudication due to lumbar spinal stenosis: Plan: At this time she is stable from an orthopedic standpoint however I am concerned about her lungs. She is very anxious to return home. I explained to her that I would allow her to return home if medicine feels she is stable. Otherwise she would need to stay another day. She understands agrees. Admission and Anticipated Discharge Date Admission Date: September 01, 2022 Subjective Patient's back pain is controlled leg symptoms improved. She feels that her breathing is improved as well. Physical Exam Physical Exam: Patient is in bed at this time. Appears comfortable. Is constricted testing. Results & Data ([facility]) Vital Signs (Past 12 Hours) Vital Signs Temp Pulse Resp BP Pulse Ox O2 Del Method O2 Flow Rate 09/04/22 07:33 88 L Room Air 09/04/22 07:03 37.1 C 77 16 114/72 91 Nasal Cannula 4 09/03/22 22:17 37.1 C 88 17 112/70 94 Nasal Cannula 4
[2022-09-04] MEDS: SPIRONOLACTONE 25 MG TAB PO SCH (08:27)
[2022-09-04] MEDS: lisinopril 10 MG TAB PO SCH (08:27)
[2022-09-04] MEDS: CALCIUM CARBONATE 1250MG TAB PO SCH (08:27)
[2022-09-04] MEDS: FOLIC ACID 1 MG TAB PO SCH (08:27)
[2022-09-04] MEDS: LANSOPRAZOLE 15 MG SOLTAB PO SCH (08:27)
[2022-09-04] MEDS: sulfaSALAzine 500 MG TABLET PO SCH (08:27)
[2022-09-04 08:37] LABS: BUN Creatinine Ratio 13.2 (10-20); Calcium 8.4 mg/dl (8.5-10.1); Creatinine Clr Calc Pharmacy 112.4 ml/min; Est GFR (African American) 115.5 ml/min; Est GFR (Non-African American) 99.6 ml/min; Potassium 3.5 mmol/L (3.5-5.1)
[2022-09-04] MEDS: AZITHROMYCIN 500 MG in DEXTROSE 5% 250 ML IV SCH (11:07)
--- NOTE | 2022-09-04 12:27 | Hospitalist Progress Note ---
Date of Service September 04, 2022 Assessment & Plan (1) Neurogenic claudication due to lumbar spinal stenosis: (2) Post-operative state: Plan: S/P back surgery by Dr. Rose on 09/01 Pain control, DVT prophylaxis, wound care as per primary team Continue incentive spirometer Continue PT/OT (3) Postoperative fever: Plan: Suspected pneumonia ? secondary to aspiration Atelectasis Blood cultures No growth to date Urine analysis not suggestive of UTI Continue incentive spirometer Plan to discharge on oral antibiotics to complete the course Continue supplemental oxygen as needed (4) Tobacco use: Plan: Smoking cessation advised. (5) Crohn's disease: Plan: Smoking cessation advised. chronic stable Crohn's disease Continue sulfasalazine. (6) Sleep apnea: Plan: Noncompliant with CPAP secondary to machine being recalled. Continue CPAP while hospitalized (7) DVT prophylaxis: Plan: SCDs/ambulation in postoperative state Code Status Full code Admission and Anticipated Discharge Date Admission Date: September 01, 2022 Subjective Patient is seen and examined at bedside States feeling better today No new complaints Back pain is controlled had 2 step earlier today Review of Systems Review of Systems: All systems reviewed & are unremarkable except as noted in Subjective Physical Exam Physical Exam: Physical Exam: Vitals signs as noted above General Appearance:Moderately built and nourished, no apparent distress Head: normocephalic, Atraumatic Eyes: normal inspection, EOMI Neck: supple, Trachea midline Respiratory/Chest: Normal breath sounds, CTA, No accessory muscle use Cardiovascular: S1, S2, No murmur Abdomen/GI:Soft, Non tender, Bowel sounds present Back:Surgical site in dressing Extremities/Musculoskeletal:normal inspection, Trace edema Neurologic/Psych:AAOX3, grossly no focal neurological deficits Skin: normal color, warm Results & Data Results & Data ([facility]) Vital Signs (Past 12 Hours) Vital Signs Temp Pulse Pulse Pulse Pulse Pulse Resp 09/04/22 09:30 09/04/22 10:14 98 H 107 H 101 H 87 09/04/22 07:33 09/04/22 07:03 37.1 C 77 16 Resp Resp Resp Resp BP Pulse Ox Pulse Ox 09/04/22 09:30 92 09/04/22 10:14 16 20 20 16 93 09/04/22 07:33 88 L 09/04/22 07:03 114/72 91 Pulse Ox Pulse Ox Pulse Ox O2 Del Method O2 Flow Rate O2 Flow Rate O2 Flow Rate 09/04/22 09:30 Nasal Cannula 2 09/04/22 10:14 91 92 83 L 2 2 09/04/22 07:33 Room Air 09/04/22 07:03 Nasal Cannula 4 O2 Flow Rate 09/04/22 09:30 09/04/22 10:14 2 09/04/22 07:33 09/04/22 07:03 Laboratory Results Short CBC 09/04/22 Range/Units 08:03 WBC 12.69 H (4.8-10.8) K/ul Hgb 13.2 (12.0-16.0) g/dl Hct 35.1 (34.1-44.9) % Plt Count 176 (130-400) K/uL BMP 09/04/22 08:03 Sodium 132 L Potassium 3.5 Chloride 97 L Carbon Dioxide 31 BUN 7 Creatinine 0.53 L Glucose 103 H Calcium 8.4 L
--- NOTE | 2022-09-04 14:41 | XRay Report ---
SINGLE VIEW CHEST CLINICAL HISTORY: Hypoxia FINDINGS: An AP, portable, upright chest radiograph is compared to study dated 09/02/2022. The examin ation is degraded by portable technique and patient rotation. The heart is enlarged. There is pulmon mitesh vascular congestion. Dependent airspace opacities likely representing atelectasis. No large pleur al effusion or pneumothorax is seen. The skeletal structures are osteopenic. The bony thorax is gross ly intact. IMPRESSION: 1. Cardiomegaly with pulmonary vascular congestion. 2. Dependent airspace opacities are again noted. ACT 112: Negative or not required by law. Electronically signed by: Tarun Wilder M.D. 09/04/2022 2:39 PM
--- NOTE | 2022-09-11 10:48 | Discharge Summary ---
Date of Service September 11, 2022 Admission HPI Per Admitting Provider This is a 67-year-old female who presents with persistent back and bilateral leg pain. After failing a course of nonoperative care patient patient is here for surgical invention. Admission Exam (Per Admitting) Constitutional WD/WN, vitals as above well developed Eyes normal visual hung by confrontation ENMT external ear and nose normal, oropharynx normal Neck normal visual inspection Respiratory normal respiratory effort Cardiovascular Extremities: normal capillary refill Gastrointestinal (Abdomen) Inspection/Auscultation: abdomen normal to inspection Musculoskeletal Spine: + pain with thoraco-lumbar ROM Extremities: extremities normal to inspection Skin no rashes, warm and dry Neurologic normal touch/pain/proprioception and moves all extremities Psychiatric A+Ox3, euthymic affect Eye Contact: good eye contact Speech: normal rate/rhythm/volume of speech Discharge Data Consultations 09/01/22 19:18 Consult Hospitalist Routine Procedures Performed Operation Date: 09/01/22 12:25 Actual Procedures p L2-S1 Decompression and Fusion, Spinal Cord Monitoring(Not Applicable) - Dima Rose DO Hospital Course (1) Neurogenic claudication due to lumbar spinal stenosis: Patient was discharged home on postoperative day 3. She did develop a postoperative fever. This was felt to be due to atelectasis. Nonetheless she was discharged home on oral antibiotics. Urinalysis was negative for sign of infection. Other than that she is making great progress in physical therapy. Pain was controlled. Discharge Instructions ACTIVITY RECOMMENDATIONS: SELF CARE INSTRUCTIONS AFTER THORACIC/LUMBAR FUSIONS 1. You may walk to your tolerance. It is good exercise for your legs and back. Expect some back and intermittent leg aches and pains. 2. You may perform "counter-top" level activities (make a sandwich, teddy with a project, etc.). 3. No bending or lifting of more than 10 pounds or back twisting of any nature (roll like a log when turning in bed). 4. You may ride in a car for 20-30 minutes at a time. No driving until after your first visit with your doctor. 5. Frequent changes of position and restricting sitting to 30 minutes at a time will help limit the amount of back spasms and stiffness you may experience. 6. You may discontinue the use of ambulatory aids (cane, crutches, etc.) once your strength and confidence allow. 7. You may director of marketing the shower and let water strike your incision when you arrive home at least once daily. Do not take a tub bath, sit in a hot tub or go into a swimming pool until after your first recheck in the office. SPECIAL CARE INSTRUCTIONS: VERY IMPORTANT TO READ AND REVIEW A. Your surgical incision has been closed with a cosmetic suture under the skin that will dissolve in about 6 weeks. In 14 days, you can use a pair of clean scissors and cut the suture that is left outside of the skin at the ends of your incision. 1. The small skin tapes can be removed 7 days after surgery if they have not fallen off by that point. 2. You may keep the wound open to air as much as possible to promote healing after post-op day number 5 unless told otherwise by your doctor. 3. If you think the wound looks like it is becoming infected (redness or worsening drainage) and/or you are experiencing fever, chill or worsening back pain and muscle spasms, contact the office so that we may evaluate you as soon as possible. B. Complications are uncommon, but please contact us if you have any signs or symptoms of: 1. wound infection (fever higher than 102.5 degrees F, redness, separation of wound, drainage, or increasing pain from the incision) 2. blood clots in legs (pain, swelling, redness and warmth in legs) 3. urinary tract infection (fever higher than 102.5 degrees F, burning upon urination or increased frequency of urination) 4. nerve problems (inability to walk on your toes or heels, numbness, loss of bowel or bladder control) 5. any other symptoms that concern you C. Please call the office at if you have any concerns or questions about your operation or recovery. D. No smoking! Smoking drastically decreases the chance of a solid fusion. E. Do not take any anti-inflammatory medications (Indocin, Advil, Motrin, Aspirin, Naprosyn, etc.) as these may inhibit the chance of a solid fusion. Tylenol is okay to take for pain. MANAGING PAIN AFTER SPINAL SURGERY 1. Narcotic medication is intended for short-term use and will be provided for surgical pain. Surgical pain usually lasts for a period of 4-6 weeks. Narcotic medication includes Percocet, Vicodin, Darvocet, Tylenol #3 or Lortab. 2. Longer-term pain is more appropriately treated with non-narcotic medication such as Tylenol ES. 3. Muscle spasm is not appropriately treated with narcotics. Muscle relaxers such as Soma, Flexeril or Skelaxin can be used along with Tylenol ES. 4. Remember that we all live with some "aches and pains". This is not unusual or uncommon after an injury or as we get older. a. Back pain is expected and may include muscle spasms for 4 to 6 weeks after surgery. The pain should gradually improve. If the pain worsens for no apparent reason, please contact the office. b. Intermittent leg pain may also be experienced and should not be concerned about unless it worsens for no apparent reason. If so, please contact the office. 5. We will provide appropriate medication within the normal guidelines of their prescribed use. We will also be very cautious and aware of potential abuse and extended duration of patients' medication needs. a. Pain medications are for your comfort and to assist with sleep and rest so that the tissue can heal. They are not provided in order to return to normal activity and should not be used through the day. To do so or worsening pain at night can result from ongoing tissue damage and d evelopment of tolerance to the prescribed medicine. 6. Please allow 2-3 days to process refills. Prescriptions will not be mailed but must be picked up at the office. FOLLOW UP VISIT: Keep your scheduled follow-up appointment. Any questions, please call the office at .
== END 2022-09-04 15:24 | disposition home or self-care (01) | DRG 453 ==
LOC: ASU 11:22 → 3W 16:07